=== PATIENT | female | born 1985 | race Native Hawaiian/Other Pacific Islander ===

== ENCOUNTER 2017-05-18 17:31 | Outpatient (CLI) | payer OTHER, BC | END 2017-05-18 17:48 | disposition short-term general hospital (02) | LOC: AMB 17:31 | DX: M79.675 Pain in left toe(s) (principal); S80.212A Abrasion, left knee, initial encounter; V49.88XA Car occupant (driver) (passenger) injured in other specified transport accidents, initial encounter; Y92.488 Other paved roadways as the place of occurrence of the external cause ==

== ENCOUNTER 2017-05-18 18:00 | Emergency (ER) | payer OTHER, BC ==
[~2017-05-18] VITALS: Ht 177.8 cm; Wt 52.2 kg
== END 2017-05-18 20:50 | disposition home or self-care (01) ==
LOC: ED 18:00
DX: S80.02XA Contusion of left knee, initial encounter (principal); S90.32XA Contusion of left foot, initial encounter; V89.2XXA Person injured in unspecified motor-vehicle accident, traffic, initial encounter
CPT/HCPCS: 99283